=== PATIENT | female | born 1965 ===

== ENCOUNTER 2021-10-24 07:32 | Outpatient (CLI) | payer OTHER | END 2021-10-24 07:33 | disposition home or self-care (01) | LOC: NUCLEAR 07:32 | DX: M81.0 Age-related osteoporosis without current pathological fracture (principal); E21.0 Primary hyperparathyroidism | CPT/HCPCS: 77080; 78072; A9500 ==

== ENCOUNTER 2021-10-24 09:09 | Outpatient (CLI) | payer OTHER | END 2021-10-25 14:50 | disposition home or self-care (01) | LOC: SONOGRAMA 09:09 | PROVIDERS: ATTEND Specialist | DX: E04.1 Nontoxic single thyroid nodule (principal) ==